=== PATIENT | female | born 1970 | race Caucasian/White ===

== ENCOUNTER 2021-07-31 19:18 | Emergency (ER) | payer OTHER, MEDICAID, SELFPAY ==
[2021-07-31 19:20] VITALS: BP 164/72; PULSE 96; RESP 20; TEMP 37.1; O2SAT 98
--- NOTE | 2021-07-31 19:31 | ED.ABDPAIN ---
HPI - Abdominal Pain General Chief Complaint: Abdominal Pain Stated Complaint: SEVERE PAIN GALLBLADDER Time Seen by Provider: 07/31/21 19:31 Source: patient Mode of arrival: Ambulatory History of Present Illness HPI narrative: 51-year-old woman who has been having intermittent right upper quadrant abdominal pain for a number of months with intermittent episodes of diarrhea. Initially they had not was irritable bowel syndrome and she recently had a screening colonoscopy that was unremarkable. Over the last week she is having more localizing right upper quadrant pain with seen by primary care physician 5 days ago and an ultrasound was ordered and done this morning at [facility]. Significant for cholelithiasis with slightly thickened gallbladder wall. Over the course of today the pain has gotten significantly worse she is having difficulty laying back, difficulty sleeping increasing diarrhea and comes in for further evaluation. Related Data Allergies Allergy/AdvReac Type Severity Reaction Status Date / Time Iodinated Contrast Media Allergy Intermediate Redness of Verified 07/31/21 20:27 Skin oxycodone [From Percocet] Allergy Intermediate Hives Verified 07/31/21 20:27 acetaminophen [From Percocet] Allergy Unknown Verified 07/31/21 19:41 Review of Systems Review of Systems Narrative: Remainder of complete review of systems is otherwise unremarkable except for that included in the HPI. Patient History Medical History Cholelithiasis Chronic back pain Surgical History H/O: hysterectomy Exam Narrative Exam Narrative: General: Healthy appearing, in mild distress with increasing right upper quadrant pain Able to give a complete and coherent history. Well-nourished well-developed HEENT: Moist mucous membranes, normal sclera with reactive pupils, Respiratory: Lungs are clear to auscultation, no wheezing no rales no rhonchi. Full and symmetrical air movement Cardiac: Regular rate and rhythm no murmurs no bruits Abdomen: Soft, tender in the right upper quadrant without rebound or guarding, good bowel tones, no flank pain Skin: Warm and dry, no rashes Neurologic: Grossly neurologically intact with no obvious asymmetries or abnormalities Extremities: No trauma, well perfused Psych: Cooperative, appropriate insight and affect Initial Vital Signs Initial Vital Signs: Vital Signs Temperature 98.8 F 07/31/21 19:20 Pulse Rate 96 H 07/31/21 19:20 Respiratory Rate 20 07/31/21 19:20 Blood Pressure 164/72 H 07/31/21 19:20 Pulse Oximetry 98 07/31/21 19:20 Course Orders Ordered: ED Orders 07/31/21 19:30 Complete Blood Count AUTO DIFF Stat Comprehensive Metabolic Panel Stat Lipase Stat 07/31/21 19:32 EKG-12 Lead Stat 07/31/21 19:50 COVID19 - ADMIT ([employer] swab/PCR) Stat 07/31/21 20:00 Urine Culture Stat Urine Microscopic Stat Sodium Chloride (Normal Saline 0.9%) 1,000 mls @ 150 mls/hr IV CONT JEWEL Last Admin: 07/31/21 19:43 Dose: 150 mls/hr Documented by: TALIA Discontinued Medications Hydromorphone HCl (Hydromorphone 0.5 Mg Inj) 0.5 mg IV NOW ONE Stop: 07/31/21 19:35 Last Admin: 07/31/21 19:44 Dose: 0.5 mg Documented by: TALIA Ondansetron HCl (Ondansetron 4 Mg/2 Ml Inj) 4 mg IV NOW ONE Stop: 07/31/21 19:35 Last Admin: 07/31/21 19:43 Dose: 4 mg Documented by: TALIA Vital Signs Vital signs: Vital Signs - 8 hr 07/31/21 19:20 07/31/21 19:59 07/31/21 20:01 Temperature 98.8 F Pulse Rate 96 H 85 80 Respiratory Rate 20 20 13 Blood Pressure 164/72 H 137/76 135/66 Pulse Oximetry 98 96 97 MDM - Abdominal Pain Medical Records Medical records narrative: Abdominal ultrasound done at [facility] at a.m. this morning: Liver diffusely increased in echogenicity no focal hepatic abnormalities. Gallbladder: Multiple gallstones present and gallbladder wall is prominent at 4.0 mm. No pericholecystic fluid no definite sonographic Hassan sign. Biliary ducts: Intrahepatic bile ducts are nondilated. Extrahepatic duct caliber measures 4.4 mm. Normal is 6 7 mm or less. Pancreas: Visualized portions of the pancreas are sonographically normal Spleen: Normal in size Kidneys normal in size no hydronephrosis or nephrolithiasis Aorta is normal, iliacs not well seen intrahepatic inferior vena cava is present no free abdominal fluid Impression: Cholelithiasis with prominence of the gallbladder wall measuring up to 4 mm. Early developing cholecystitis cannot be excluded clinical correlation and follow-up is recommended. Lab Data Result diagrams: 07/31/21 19:30 07/31/21 19:30 Labs: Lab Results 07/31/21 07/31/21 07/31/21 Range/Units 19:30 19:30 19:50 WBC 11.2 H (4.5-11.0) X10^3/uL RBC 5.26 H (4.0-5.2) X10^6/uL Hgb 15.1 (12.0-16.0) g/dL Hct 44.1 (36-46) % MCV 84.0 (80-100) fL MCH 28.7 (26-34) PG MCHC 34.2 (30-36) % RDW 13.5 (11.6-14.8) % Plt Count 242 (150-400) X10^3/uL Neut % (Auto) 65.8 (50-75) % Lymph % (Auto) 24.3 L (25-40) % Dubois % (Auto) 6.3 (3-14) % Eos % (Auto) 2.5 (2-4) % Baso % (Auto) 1.1 (0-2) % Neut # (Auto) 7400 H (1282-6739) /uL Lymph # (Auto) 2700 (2744-8927) /uL Dubois # (Auto) 700 (0-900) /uL Eos # (Auto) 300 (0-450) /uL Baso # (Auto) 100 (0-100) /uL Sodium 139 (137-145) mmol/L Potassium 4.1 (3.4-5.1) mmol/L Chloride 105 (98-107) mmol/L Carbon Dioxide 23 (22-32) mmol/L BUN 18 H (7-17) mg/dL Creatinine 0.78 (0.52-1.04) mg/dL Estimated GFR > 60.0 (>60) mL/min BUN/Creatinine Ratio 23.1 H (6-22) Glucose 92 (70-100) mg/dL Calcium 9.6 (8.4-10.2) mg/dL Total Bilirubin 0.9 (0.2-1.3) mg/dL AST 23 (14-36) IU/L ALT 24 (<35) IU/L Alkaline Phosphatase 49 (38-126) U/L Total Protein 7.7 (6.3-8.2) g/dL Albumin 4.8 (3.5-5.0) g/dL Globulin 2.9 (1.7-4.1) g/dL Albumin/Globulin Ratio 1.7 (1.0-2.8) Lipase 29 (23-300) U/L Urine RBC (0-5/HPF) Urine WBC (0-5/HPF) Ur Squamous Epith Cells (0-5/HPF) Calcium Oxalate Crystal Urine Bacteria (None) Urine Mucus (Negative) Ur Culture Indicated? Micro UA Comment SARS-CoV-2 (PCR) Negative (Negative) 07/31/21 Range/Units 20:00 WBC (4.5-11.0) X10^3/uL RBC (4.0-5.2) X10^6/uL Hgb (12.0-16.0) g/dL Hct (36-46) % MCV (80-100) fL MCH (26-34) PG MCHC (30-36) % RDW (11.6-14.8) % Plt Count (150-400) X10^3/uL Neut % (Auto) (50-75) % Lymph % (Auto) (25-40) % Dubois % (Auto) (3-14) % Eos % (Auto) (2-4) % Baso % (Auto) (0-2) % Neut # (Auto) (8224-8411) /uL Lymph # (Auto) (0238-0129) /uL Dubois # (Auto) (0-900) /uL Eos # (Auto) (0-450) /uL Baso # (Auto) (0-100) /uL Sodium (137-145) mmol/L Potassium (3.4-5.1) mmol/L Chloride (98-107) mmol/L Carbon Dioxide (22-32) mmol/L BUN (7-17) mg/dL Creatinine (0.52-1.04) mg/dL Estimated GFR (>60) mL/min BUN/Creatinine Ratio (6-22) Glucose (70-100) mg/dL Calcium (8.4-10.2) mg/dL Total Bilirubin (0.2-1.3) mg/dL AST (14-36) IU/L ALT (<35) IU/L Alkaline Phosphatase (38-126) U/L Total Protein (6.3-8.2) g/dL Albumin (3.5-5.0) g/dL Globulin (1.7-4.1) g/dL Albumin/Globulin Ratio (1.0-2.8) Lipase (23-300) U/L Urine RBC 5-10/hpf H (0-5/HPF) Urine WBC 5-10/hpf H (0-5/HPF) Ur Squamous Epith Cells 5-10 /hpf H (0-5/HPF) Calcium Oxalate Crystal Few H Urine Bacteria Moderate (10-30) H (None) Urine Mucus 2+ H (Negative) Ur Culture Indicated? Culture not indicate Micro UA Comment Cx order by SARS-CoV-2 (PCR) (Negative) Point of care testing: Urine Dip Bedside Urine Glucose Negative Bedside Urine Bilirubin - Negative Bedside Urine Ketone - Negative Urine Specific [place] 1.030 Bedside Urine Occult Blood +++ Bedside Urine pH 5.5 Bedside Urine Protein +/- 15 Bedside Urine Urobilinogen - Negative Bedside Urine Nitrite - Negative Bedside Urine Leukocytes - Negative Esterase MDM Narrative Medical decision making narrative: 51-year-old Woman with cholelithiasis becoming more problematic over the last number of days. Labs today do not suggest acute cholecystitis. Ultrasound done at [facility] this morning suggests some minor wall inflammation but no pericholecystic fluid or signs of acute infection. Pain is better controlled after fluids Dilaudid and Zofran. Care is reviewed with Dr. Ryan, on-call surgeon. Agrees with home discharge with pain control and suggests the patient call the office tomorrow morning to set up more urgent surgical consultation for cholecystectomy than had been anticipated after a routine visit with her primary care doctor last week. All of this is reviewed with patient. She is safe for home discharge Discharge Plan Departure Patient Disposition: Home Clinical Impression: Cholelithiasis, Gallbladder pain Instructions: Cholecystectomy -- Laparoscopic Surgery, Gallstones, DI for Cholecystitis Activity Restrictions/Additional Instructions: Thank you for coming in today You do have gallstones and I suspect these are the cause of the pain your having in the right upper quadrant. Your blood work today does not show acute infection and your pain has been moderately controlled with pain medication. At this time, you do not need emergent surgery however contacting the surgery office tomorrow to schedule follow-up for a planned cholecystectomy would be a good idea. The phone number for [facility] here in [place] is [phone] If you find that your pain is uncontrolled, your having fevers, chills notice that your skin is turning yellow or have new symptoms you do need to return to the emergency department.
[2021-07-31] MEDS: ONDANSETRON 4 MG/2 ML INJ IV (19:43)
[2021-07-31] MEDS: SODIUM CHLORIDE 0.9% 1,000 ML 150 ML IV (19:43)
[2021-07-31] MEDS: HYDROMORPHONE 0.5 MG INJ IV (19:44)
[2021-07-31 19:50] LABS: Alanine Aminotransferase 24 IU/L (<35); Albumin 4.8 g/dL (3.5-5.0); Albumin Globulin Ratio 1.7 (1.0-2.8); Alkaline Phosphatase 49 U/L (38-126); Aspartate Aminotransferase 23 IU/L (14-36); BUN Creatinine Ratio 23.1 (6-22); Bilirubin Total 0.9 mg/dL (0.2-1.3); Blood Urea Nitrogen 18 mg/dL (7-17); Calcium 9.6 mg/dL (8.4-10.2); Carbon Dioxide 23 mmol/L (22-32); Chloride 105 mmol/L (98-107); Estimated Glomerular Filt Rate > 60.0 mL/min (>60); Globulin 2.9 g/dL (1.7-4.1); Glucose 92 mg/dL (70-100); HEMOLYSIS < 15 (0-50); Lipase 29 U/L (23-300); Potassium 4.1 mmol/L (3.4-5.1); Sodium 139 mmol/L (137-145); Total Protein 7.7 g/dL (6.3-8.2)
[2021-07-31 19:59] VITALS: BP 137/76; PULSE 85; RESP 20; O2SAT 96
[2021-07-31 20:00] LABS: Add Manual Diff / Slide Review NO; Basophils Absolute Auto 100 /uL (0-100); Basophils Percent Auto 1.1 % (0-2); Eosinophils Absolute Auto 300 /uL (0-450); Eosinophils Percent Auto 2.5 % (2-4); Hematocrit 44.1 % (36-46); Hemoglobin 15.1 g/dL (12.0-16.0); Lymphocytes Absolute Auto 2700 /uL (1100-4500); Lymphocytes Percent Auto 24.3 % (25-40); Mean Corpuscular HGB Conc 34.2 % (30-36); Mean Corpuscular Hemoglobin 28.7 PG (26-34); Monocytes Absolute Auto 700 /uL (0-900); Monocytes Percent Auto 6.3 % (3-14); Neutrophils Absolute Auto 7400 /uL (1500-7000); Neutrophils Percent Auto 65.8 % (50-75); Platelet Count 242 X10^3/uL (150-400); Red Blood Cell Count 5.26 X10^6/uL (4.0-5.2); Red Cell Distribution Width 13.5 % (11.6-14.8); White Blood Cell Count 11.2 X10^3/uL (4.5-11.0)
[2021-07-31 20:01] VITALS: BP 135/66; PULSE 80; RESP 13; O2SAT 97
[2021-07-31 20:31] VITALS: BP 136/71; PULSE 83; RESP 20; O2SAT 98
[2021-07-31 20:47] LABS: Bacteria Urine Moderate (10-30); Calcium Oxalate Crystals Urine Few; Mucus Urine 2+ (Negative); RBC Urine 5-10/HPF (0-5/HPF); Squamous Epithelial Cell Urine 5-10 /HPF (0-5/HPF); WBC Urine 5-10/HPF (0-5/HPF)
[2021-07-31 20:48] LABS: Urine Comments CX ORDER BY MD
[2021-07-31 20:51] LABS: COVID19 - ADMIT (NP swab/PCR) Negative (Negative)
[2021-07-31 21:01] VITALS: BP 130/72; PULSE 87; RESP 24; O2SAT 97
[2021-07-31] MEDS: HYDROCODONE/ACET 5/325 TABLET 1 TAB PO (21:27)
== END 2021-07-31 21:35 | disposition home or self-care (01) ==
PROVIDERS: Emergency Provider Emergency Medicine
DX: K80.20 Calculus of gallbladder without cholecystitis without obstruction (principal); K82.9 Disease of gallbladder, unspecified; R19.7 Diarrhea, unspecified; R10.11 Right upper quadrant pain; Z20.822 Contact with and (suspected) exposure to COVID-19
CPT/HCPCS: 36415; 80053; 81003; 81015; 83690; 85025; 87086; 87635; 93005; 96361; 96374; 96375; 99284; C9803; J1170; J2405